=== PATIENT | female | born 1950 | race Caucasian/White ===

== ENCOUNTER 2020-12-26 01:53 | Emergency (ER) | payer OTHER ==
[~2020-12-26] VITALS: Ht 172.7 cm; Wt 71.4 kg
[2020-12-26 02:08] VITALS: Ht 172.7 cm; Wt 71.4 kg
[2020-12-26] MEDS ORDERED: FLOMAX0.4 MG PO (02:12)
[2020-12-26] MEDS ORDERED: TYLENOL W/CODEI1 TAB PO (02:12)
[2020-12-26] MEDS ORDERED: CEPHALEXIN500 M1 PO (02:12)
[2020-12-26] MEDS ORDERED: TRIAMTERENE-HC1 EAC3 PO (02:13)
[2020-12-26] MEDS ORDERED: LIPITOR40 MG PO (02:13)
[2020-12-26] MEDS ORDERED: BETAPACE 120 M120 MG PO (02:13)
[2020-12-26] MEDS ORDERED: JANTOVEN2.5 MG (02:14)
[2020-12-26] MEDS ORDERED: WARFARIN SODIUM5 MG (02:14)
[2020-12-26] MEDS ORDERED: BAYER CHEWABLE81 MG PO (02:14)
[2020-12-26] MEDS ORDERED: ZYRTEC10 MG PO (02:15)
[2020-12-26 03:03] LABS: BILIRUBIN NEGATIVE (NEGATIVE); KETONE NEGATIVE (NEGATIVE); NITRITE NEGATIVE (NEGATIVE); UROBILINOGEN NORMAL mg/dL (< 2); WHITE CELLS - URINE 6 HPF (0-4)
[2020-12-26 03:04] LABS: BACTERIA FEW HPF (NONE SEEN); SQUAMOUS EPITHELIAL 0-5 HPF (0-4)
[2020-12-26 03:08] LABS: BASOPHILS 0.5 % (0-2); EOSINOPHILS 1.3 % (0-7); HEMATOCRIT 36.9 % (36.0-48.0); HEMOGLOBIN 11.9 g/dL (12-16); LYMPHOCYTES 12.4 % (15-50); MCH 27.6 pg (26.0-34.0); MCHC 32.4 g/dL (31.0-37.0); MCV 85.2 fL (80.0-100.0); MEAN PLATELET VOLUME 8.6 fL (7.4-10.4); MONOCYTES 6.4 % (2-11); NEUTROPHILS 79.4 % (40-80); PLATELET COUNT 164 10x3/uL (130-400); RBC 4.33 10x6/uL (4.00-5.40); RDW 13.5 % (11.5-14.5); WBC 11.4 10x3/uL (4.8-10.8)
[2020-12-26 03:17] LABS: ANION GAP 9.6 mmol/L (8-16); CALCIUM 8.1 mg/dL (8.5-10.1); CARBON DIOXIDE 30.9 mmol/L (21.0-32.0); CREATININE - SERUM 1.2 mg/dL (0.6-1.3); POTASSIUM - SERUM 4.5 mmol/L (3.5-5.1)
[2020-12-26 03:18] LABS: INR 2.22 (0.85-1.17); PROTIME 22.9 SECONDS (11.6-15.0)
[2020-12-26 03:23] LABS: ALBUMIN 3.4 g/dL (3.4-5.0); BILIRUBIN - TOTAL 0.45 mg/dL (0.2-1.3); PROTEIN - SERUM 6.9 g/dL (6.4-8.2)
[2020-12-26 06:24] VITALS: BP 119/76
== END 2020-12-26 06:26 | disposition other institution (70) ==
LOC: D.ER 01:53
PROVIDERS: Family Medicine
DX: N13.1 Hydronephrosis with ureteral stricture, not elsewhere classified (principal); Z86.73 Personal history of transient ischemic attack (TIA), and cerebral infarction without residual deficits; E78.5 Hyperlipidemia, unspecified